=== PATIENT | male | born 1955 | race Caucasian/White ===

== ENCOUNTER 2017-09-27 11:32 | Emergency (ER) | payer BC ==
[~2017-09-27] VITALS: Ht 175.3 cm; Wt 101.4 kg
[2017-09-27 12:38] LABS: HEMATOCRIT 44.9 % (39.0-50.0); HEMOGLOBIN 14.7 g/dl (14.0-18.0); IMMATURE GRANULOCYTES 0.5 % (0.0-1.0); MEAN CORPUSCULAR HGB 30.1 pG CALC (26.0-32.0); MEAN CORPUSCULAR HGB CONC 32.7 g/L CALC (32.0-36.0); NEUT# 5.9 thou/uL (1.82-7.42); RED BLOOD COUNT 4.88 mill/uL (4.70-6.10); RED CELL DISTRI WIDTH 13.8 % (11.5-15.5)
[2017-09-27 12:49] LABS: ANION GAP 20 (6-22 (CALC)); BUN 9 mg/dL (8-23); BUN/CREATININE RATIO 10 (12-20 (CALC)); CARBON DIOXIDE 24 mmol/l (22-30); CHLORIDE 104 mmol/l (95-108); GFR > 60 ML/MIN (>=60 (CALC)); GFR FOR AFR.AMER. > 60 ML/MIN (>=60 (CALC)); POTASSIUM 4.4 mmol/l (3.5-5.1); SODIUM 144 mmol/l (137-146)
[2017-09-27 12:56] LABS: INFLUENZA A POSITIVE (NONE DETECT); INFLUENZA B NONE DETECTED (NONE DETECT)
[2017-09-27] MEDS ORDERED: TAM75CAP PO (13:41)
[2017-09-27] MEDS ORDERED: [UNRECOGNIZED DRUG - OTHER] PO (13:58)
[2017-09-27] MEDS ORDERED: XANAX0.25 MG PO (13:58)
[2017-09-27 14:00] VITALS: BP 122/70
== END 2017-09-27 14:00 | disposition home or self-care (01) | DRG 153 ==
LOC: ED 11:32
PROVIDERS: Family Medicine
DX: J11.1 Influenza due to unidentified influenza virus with other respiratory manifestations (principal); F41.9 Anxiety disorder, unspecified